=== PATIENT | female | born 1960 | race Caucasian/White ===

== ENCOUNTER → 2021-01-12 14:04 | Outpatient (BNVA) | payer BC, SELFPAY | PROVIDERS: Family Provider Internal Medicine; PCP Internal Medicine; Visit Provider Nurse Practitioner Family | DX: Z20.822 Contact with and (suspected) exposure to COVID-19 (principal) | CPT/HCPCS: 87635 ==

== ENCOUNTER 2022-05-12 10:10 | Emergency (ER) | payer BC, SELFPAY ==
[2022-05-12 10:10] VITALS: BP 134/81; PULSE 86; RESP 17; TEMP 36.6; O2SAT 97
--- NOTE | 2022-05-12 10:50 | PC.NURSE ---
Pt was here a short time, i had done her assessment, when lab went in to draw her blood she started yelling and cussing that she wanted pain meds, i went in her room she demanded pain meds i told her i had to go ask the doctor, she said she wanted to leave AMA, i told her to wait tell i talked to the doctor. I spoke to Dr. Rosenberg he said to give her hydrocodone, i went back in to tell her and she screamed you can keep your fucking hydrocodone, they are not strong enough i have them in the car pt demanded to leave and refused to sign AMA form. Dr rosenberg and charge nurse was notified
--- NOTE | 2022-05-12 11:12 | ED_ITS ---
HPI - General Adult General: Chief complaint: General Medical Stated complaint: Groin Pain/Post Surgery Time Seen by Provider: 05/12/22 10:17 History of Present Illness: Had signed up to see this patient and based on her triage notes ordered some initial labs and an ultrasound of the groin. Time I reviewed her chart she had tramadol down as a pain medication she is 1 week post cath. Staff had said she refused to allow any labs or testing before she had pain medicine I ordered hydrocodone she then told the staff she already had hydrocodone at home she wanted something stronger she became angry and left and did not see the patient in person she left without being seen. [facility] ED PFSH: Social History (Updated 01/12/21 @ 12:57 by Karen Abbott NP) Smoking and tobacco status: current every day smoker e-cigarettes E-Cigarette Details: vaporizer device Alcohol intake: current Alcohol intake frequency: holidays/special occasions only Course Vital Signs: Vital signs: Vital Signs Temperature 97.9 F 05/12/22 10:10 Pulse Rate 86 05/12/22 10:10 Respiratory Rate 17 05/12/22 10:10 Blood Pressure 134/81 05/12/22 10:10 Pulse Oximetry 97 05/12/22 10:10 Oxygen Delivery Me thod 05/12/22 10:10 MDM - General Adult Medical Decision Making Left without being seen because she did not receive what she felt was appropriate pain medications. Discharge Plan Discharge Patient Disposition: Left Against Medical Advice Clinical Impression: Right groin pain Condition: Stable Prescriptions: No Action Humira 40 mg/0.8 mL syringe kit 40 mg SUBCUT Q14D levothyroxine [Synthroid] 75 mcg tablet 75 mcg PO DAILY hydroxyzine HCl 25 mg tablet 25 mg PO BID PRN muscle relaxer PO .hs tramadol 50 mg tablet 50 mg PO BID PRN Referrals: Sneha Varghese MD [Primary Care Provider] - Coding Level of Care Code ED [place] Coiling Machine Setter for Rodolfo Greenwood
== END 2022-05-12 10:50 | disposition left against medical advice (07) ==
PROVIDERS: Emergency Provider Family Medicine; PCP Internal Medicine
DX: R10.31 Right lower quadrant pain (principal); F17.290 Nicotine dependence, other tobacco product, uncomplicated
CPT/HCPCS: 99281

== ENCOUNTER 2022-10-05 11:38 | Outpatient (RCR) | payer BC, SELFPAY | END 2022-10-18 23:59 | disposition home or self-care (01) | LOC: SPT 11:38 | PROVIDERS: Visit Provider Neurological Surgery | DX: M54.9 Dorsalgia, unspecified (principal) | CPT/HCPCS: 97161 ==

== ENCOUNTER 2024-08-09 17:44 | Emergency (ER) | payer BC, SELFPAY ==
[2024-08-09] VITALS (13 sets, daily range): BP systolic 111–166; BP diastolic 80–98; PULSE 79–99; RESP 16–18; TEMP 36.9; O2SAT 92–98; BMI 22.2
[2024-08-09 18:14] LABS: Basophils # 0.1 10^3/uL (0.0-0.1); Basophils % 0.6 %; Eosinophils # 0.3 10^3/uL (0.0-0.8); Eosinophils % 2.8 %; Hematocrit 35.6 % (36-47); Lymphocytes # 3.1 10^3/uL (0.8-4.8); Lymphocytes % 28.1 %; Mean Corpuscular HGB Conc 32.6 g/dL (30-55); Mean Corpuscular Hemoglobin 26.4 pg (27-33); Mean Corpuscular Volume 81.1 fl (85-98); Mean Platelet Volume 10.1 fL (7.4-10.4); Monocytes # 0.9 10^3/uL (0.2-0.9); Monocytes % 8.7 %; Neutrophils # 6.43 10^3/uL (1.8-7.7); Neutrophils % 59.2 %; Nucleated Red Blood Cells % 0 %; Platelet Count 400 10^3/cmm (157-399); Red Blood Count 4.39 10^6/uL (3.85-5.65); Red Cell Distribution Width 14.2 % (12.1-15.1); White Blood Count 10.84 10^3/uL (3.29-11.43)
--- NOTE | 2024-08-09 18:14 | PC.NURSE ---
pt states she cannot go to the bathroom and is refusing straight cath. pt requesting something for pain.
[2024-08-09 18:20] LABS: INR 0.83 (0.8-1.2)
[2024-08-09 18:28] LABS: Alanine Aminotransferase 17 U/L (0-33); Albumin Level 4.4 g/dL (3.5-5.2); Alkaline Phosphatase 110 U/L (35-105); Aspartate Amino Transferase 22 U/L (0-32); Blood Urea Nitrogen 23 mg/dL (8-23); Calcium 9.6 mg/dL (8.5-10.5); Carbon Dioxide 24 mmol/L (22-29); Chloride 100 mmol/L (98-107); Creatinine Clr Calc Pharmacy 62.1082; Globulin 2.7 g/dL (1.3-4.6); Glomerular Filtration Rate 55.8 mL/min (90-130); Glucose 133 mg/dL (65-115); Lipase 67 U/L (13-60); Osmolality Calculated 292 mOsm/kg (285-295); Sodium 138 mmol/L (136-145); Total Bilirubin 0.2 mg/dL (0.15-1.2); Total Protein 7.1 g/dL (6.6-8.7)
--- NOTE | 2024-08-09 18:30 | CTR_ITS ---
PROCEDURE INFORMATION: Exam: CT Abdomen And Pelvis With Contrast Exam date and time: 08/09/2024 7:00 PM Age: 64 years old Clinical indication: Abdominal pain; Localized; Left lower quadrant (llq); Prior surgery; Surgery date: 6+ months; Surgery type: Spine x2; Additional info: Left lower quadrant abdominal pain, TECHNIQUE: Imaging protocol: Computed tomography of the abdomen and pelvis with contrast. Radiation optimization: All CT scans at this facility use at least one of these dose optimization techniques: automated exposure control; mA and/or kV adjustment per patient size (includes targeted exams where dose is matched to clinical indication); or iterative reconstruction. Contrast material: OMNIPAQUE 350; Contrast volume: 100 ml; Contrast route: INTRAVENOUS (IV); COMPARISON: CR XR hip BI 3-4V wo/w pel [id number] 08/13/2017 11:35 AM RADIATION DOSE METRICS: Total DLP (mGy-cm): 674.35 FINDINGS: Lungs: Dependent atelectasis. Solid left lower lobe nodule measuring 7 mm. Heart: Aortic valve calcifications. Coronary arteries: Coronary artery calcifications. Liver: Normal. No mass. Gallbladder and biliary ducts: Common bile duct is grossly unremarkable. Pancreas: Pancreatic duct measures 4 mm. No discrete lesion of the pancreatic head. Spleen: Splenic calcifications Adrenal glands: Mild adrenal gland thickening bilaterally. Kidneys and ureters: Subcentimeter hypodense lesions likely representing small cysts. Stomach and bowel: Thickening of the duodenal bowel wall up to 1.0 cm with focal interspersed fat. Appendix: Appendix is not well visualized. Intraperitoneal space: Scant free pelvic fluid left of the bladder. Vasculature: Ectatic tortuous aorta with noncalcified and calcified plaque with ostial calcification of the major branches. Lymph nodes: No enlarged lymph nodes. Urinary bladder: Unremarkable as visualized. Small amount of free pelvic fluid left of the bladder. Reproductive: Diminutive uterus. Bones/joints: Posterior spinal fixation and anterior spinal fixation with disc spacer at L4-L5. Grade 1 anterolisthesis of L4 on L5.. No acute fracture. Soft tissues: There is a left-sided rectal sheath hematoma measuring 10.4 x 4.7 x 13.2 cm with active inferior contrast extravasation consistent with hemorrhage. CT/CT abdomen pelvis w con* [id number] IMPRESSION: 1. Left-sided rectal sheath hematoma measuring 10.4 x 4.7 x 13.2 cm with active hemorrhage inferiorly. 2. Prominent pancreatic duct at 4 mm. No discrete lesion of the pancreatic head. Recommend MRI pancreas with and without contrast for further evaluation. Solid left lower lobe nodule measuring 7 mm. For patients at low risk (minimal or absent history of smoking and of other known risk factors), recommend CT Chest at 6-12 months, then consider CT Chest at 18-24 months. For patients at high risk (history of smoking or of other known risk factors), recommend CT Chest at 6-12 months, then CT Chest at 18-24 months. (Reference: Flako) THIS REPORT CONTAINS FINDINGS THAT MAY BE CRITICAL TO PATIENT CARE. The findings were verbally communicated via telephone conference with Yossi Esparza at 7:42 PM INDUSTRIAL PIPEFITTER JOURNEYMAN on 08/09/2024. The findings were acknowledged and understood.
--- NOTE | 2024-08-09 18:33 | W.ED.ABDPA2 ---
HPI - Abdominal Pain General: Chief Complaint: Abdominal Pain Stated Complaint: Abd Pain, Time Seen by Provider: 08/09/24 18:05 History of Present Illness: Patient presents to the ER with complaints of left lower quadrant abdominal pain to 10 out of 10 she says been going on for 4 days. It started when she started coughing. Patient is COVID-positive she is on approximately day 9. She said at first it only hurt when she coughs but now the pain is there all the time. Patient is had lumbar fusion from the anterior approach as well as a left iliac stent placed. Patient is not currently on any blood thinners. Patient does have some ecchymosis on the inferior part of her abdominal scar from the prior surgery. Related Data Home Medications ?Medication ?Instructions ?Recorded ?Confirmed adalimumab 40 mg/0.8 mL 40 mg SUBCUT Q14D 01/12/21 01/12/21 subcutaneous syringe kit (Humira) hydroxyzine HCl 25 mg tablet 25 mg PO BID PRN 01/12/21 01/12/21 levothyroxine 75 mcg tablet 75 mcg PO DAILY 01/12/21 01/12/21 (Synthroid) muscle relaxer PO .hs 01/12/21 tramadol 50 mg tablet 50 mg PO BID PRN 01/12/21 01/12/21 Allergies Allergy/AdvReac Type Severity Reaction Status Date / Time gluten Allergy Severe celiac Verified 01/12/21 15:38 egg Allergy Unknown Unknown Verified 01/12/21 15:38 enalapril Allergy Unknown Unknown Verified 01/12/21 15:38 Iodinated Contrast Media Allergy Unknown Unknown Verified 08/09/24 19:07 latex Allergy Unknown unknown Verified 01/12/21 15:38 levofloxacin (From Levaquin) Allergy Unknown unknown Verified 01/12/21 15:38 metoprolol Allergy Unknown unknown Verified 01/12/21 15:38 Review of Systems General: Reports: 10 or more systems reviewed and unremarkable except in HPI and below PFSH ED PFSH: Social History Smoking and tobacco/nicotine status: current every day tobacco/nicotine user e-cigarettes E-Cigarette Details: vaporizer device Alcohol intake: current Alcohol intake frequency: holidays/special occasions only Substance/Drug Use: never Physical Exam Const: COMMON NORMALS: no acute distress, average body habitus, patient oriented x3, no limitations, healthy appearing, alert and well nourished HENMT: COMMON NORMALS: normocephalic, atraumatic, hearing grossly normal bilaterally, external ears normal, Normal external nose present, moist oral mucous membranes and oropharynx normal HEAD & SCALP: normocephalic and atraumatic NOSE: Normal external nose present EXTERNAL EAR: Yes external ears normal Neck/C-Spine: COMMON NORMALS: no JVD Chest: COMMONS NORMALS: normal inspection of the chest and normal palpation of entire chest wall Resp: COMMON NORMALS: normal respiratory effort, No retractions, No use of accessory muscles and clear to auscultation bilaterally AUSCULTATION: clear to auscultation bilaterally Cardio: COMMON NORMALS: no JVD, regular rate, regular rhythm, S1 normal heart sound present, S2 normal heart sound present, No gallops present (Cardio), No clicks present (Cardio), No murmurs present (Cardio) and No rub (Cardio) RATE: regular rate RHYTHM: regular rhythm HEART SOUNDS: S1 normal heart sound present and S2 normal heart sound present GI: COMMON NORMALS: Normal to inspection, nondistended, normoactive bowel sounds present, Soft to palpation, No hepatosplenomegaly present and no masses; negative for non-tender (mld tenderness to palpation left lower quadrant, mild ecchymosis on inf) PALPATION: Yes Soft to palpation and Yes No hepatosplenomegaly present Neuro: COMMON NORMALS: patient oriented x3 SENSORIUM/ORIENTATION: Yes alert Course Vital Signs: Vital signs: Vital Signs Temperature 98.4 F 08/09/24 17:45 Pulse Rate 87 08/09/24 22:30 Respiratory Rate 18 08/09/24 21:40 Blood Pressure 135/89 08/09/24 22:30 Pulse Oximetry 96 08/09/24 22:30 Oxygen Delivery Me thod Nasal Cannula 08/09/24 22:30 Oxygen Flow Rate 1 08/09/24 22:30 MDM - Abdominal Pain Medical Decision Making Notified by V read about patient's CT scan, actively bleeding rectal sheath hematoma, contacted who said there is nothing from a surgical standpoint that can be done this is an interventional radiology issue. [facility] they are at least 48 hours out from accepting patients. Contacted [facility] IR will look at the images and call us back, Loren call us back and said they have no beds, we called [facility], they have IR during normal business hours they will have the hospitalist look at it and give us a call back. They declined. Contacted [facility] transfer will talk to the hospitalist and call us back. The hospitalist feels she needs a stepdown/ICU bed they do not have one at this time. [facility] was called. They are at a whole hospital divert unless it is a time sensitive diagnosis. They will decline also. [facility] transfer line to the phone call, IR is not accepting service, they will call the hospitalist and he will call us back however there have an extensive wait list already. [facility] transfer line took note will call the hospitalist and call us back however they are on a wait list currently. Called [facility], I do have IR but they do not have colorectal surgery, transfer line redness by the ER doc who said they should decline excepting the patient in transfer. [facility] called back and have a bed open up, I discussed the patient with the change management coordinator as well as an ICU nurse who is going to run it by the hospitalist and see where they can place her at. They will call us back. [facility] call back accepting physician is their petroleum production engineer Medical Records I reviewed the patient's medical records. Lab Data I reviewed the patient's lab results. 08/09/24 17:30 08/09/24 17:30 Labs/Radiology: Radiology Impressions Abdomen/Pelvis CT 08/09/24 18:30 IMPRESSION: 1. Left-sided rectal sheath hematoma measuring 10.4 x 4.7 x 13.2 cm with active hemorrhage inferiorly. 2. Prominent pancreatic duct at 4 mm. No discrete lesion of the pancreatic head. Recommend MRI pancreas with and without contrast for further evaluation. Solid left lower lobe nodule measuring 7 mm. For patients at low risk (minimal or absent history of smoking and of other known risk factors), recommend CT Chest at 6-12 months, then consider CT Chest at 18-24 months. For patients at high risk (history of smoking or of other known risk factors), recommend CT Chest at 6-12 months, then CT Chest at 18-24 months. (Reference: Flako) THIS REPORT CONTAINS FINDINGS THAT MAY BE CRITICAL TO PATIENT CARE. The findings were verbally communicated via telephone conference with Yossi Esparza at 7:42 PM REFUSE AND RECYCLING WORKER on 08/09/2024. The findings were acknowledged and understood. Laboratory Results WBC 10.84 10^3/uL (3.29-11.43) 08/09/24 17:30 RBC 4.39 10^6/uL (3.85-5.65) 08/09/24 17: Hgb 11.60 g/dL (11.27-16.99) 08/09/24 17: Hct 35.6 % (36-47) L 08/09/24 17:30 MCV 81.1 fl (85-98) L 08/09/24 17: MCH 26.4 pg (27-33) L 08/09/24 17: MCHC 32.6 g/dL (30-55) 08/09/24 17: RDW 14.2 % (12.1-15.1) 08/09/24 17: Plt Count 400 10^3/cmm (157-399) H 08/09/24 17: MPV 10.1 fL (7.4-10.4) 08/09/24 17: Neut % (Auto) 59.2 % 08/09/24 17:30 Lymph % (Auto) 28.1 % 08/09/24 17:30 [place] % (Auto) 8.7 % 08/09/24 17:30 Eos % (Auto) 2.8 % 08/09/24 17: Baso % (Auto) 0.6 % 08/09/24 17: Neut # (Auto) 6.43 10^3/uL (1.8-7.7) 08/09/24 17:30 Lymph # (Auto) 3.1 10^3/uL (0.8-4.8) 08/09/24 17:30 [place] # (Auto) 0.9 10^3/uL (0.2-0.9) 08/09/24 17:30 Eos # (Auto) 0.3 10^3/uL (0.0-0.8) 08/09/24 17:30 Baso # (Auto) 0.1 10^3/uL (0.0-0.1) 08/09/24 17:30 Nucleated RBC % (auto) 0 % 08/09/24 17:30 Nucleated RBCs # 0.0 /100WBC 08/09/24 17:30 PT 12.00 SECONDS (12.1-14.9) L 08/09/24 17:30 INR 0.83 (0.8-1.2) 08/09/24 17:30 Sodium 138 mmol/L (136-145) 08/09/24 17:30 Potassium 4.0 mmol/L (3.5-5.1) 08/09/24 17:30 Chloride 100 mmol/L (98-107) 08/09/24 17:30 Carbon Dioxide 24 mmol/L (22-29) 08/09/24 17:30 Anion Gap 18.0 (5-19) 08/09/24 17:30 BUN 23 mg/dL (8-23) 08/09/24 17:30 Creatinine 1.0 mg/dL (0.5-0.9) H 08/09/24 17:30 GFR Calculation 55.8 mL/min (90-130) L 08/09/24 17:30 Glucose 133 mg/dL (65-115) H 08/09/24 17:30 Calculated Osmolality 292 mOsm/kg (285-295) 08/09/24 17:30 Calcium 9.6 mg/dL (8.5-10.5) 08/09/24 17:30 Total Bilirubin 0.2 mg/dL (0.15-1.2) 08/09/24 17:30 AST 22 U/L (0-32) 08/09/24 17:30 ALT 17 U/L (0-33) 08/09/24 17:30 Alkaline Phosphatase 110 U/L (35-105) H 08/09/24 17:30 Total Protein 7.1 g/dL (6.6-8.7) 08/09/24 17:30 Albumin 4.4 g/dL (3.5-5.2) 08/09/24 17:30 Globulin 2.7 g/dL (1.3-4.6) 08/09/24 17:30 Lipase 67 U/L (13-60) H 08/09/24 17:30 All radiology interpretation(s) finalized by discharge Discharge Plan Discharge Patient Disposition: Xfer Short-Term Hosp Clinical Impression: Rectus sheath hematoma Qualifiers: Encounter type: initial encounter Qualified Code(s): S30.1XXA - Contusion of abdominal wall, initial encounter Condition: Stable Print Language: Yemeni Coding Level of Care Code ED Patent Attorney for Rodolfo Greenwood
[2024-08-09] MEDS: methylPREDNISolone sod succ 40 mg/mL INJ IVP (18:41)
[2024-08-09] MEDS: ketorolac 30 mg/mL INJ IVP (18:43)
[2024-08-09] MEDS: metoclopramide 5 mg/mL SDV 2 mL 10 MG IVP (18:43)
[2024-08-09] MEDS: iohexol 350 mg/mL 500 mL Btl (per mL) IV (19:06)
--- NOTE | 2024-08-09 19:06 | PC.NURSE ---
pt states that she cannot have benadryl for her premed ct scan, this nurse asked if she could remember why, pt very upset and agitated states I don't know, I just know for my last CT scan they hung a bag of something [address] scan but they said I can't have Benadryl This nurse reported this to Dr. Esparza, hold Benadryl but give other scheduled medications pre for ct. Pt also continues to states her pain is worse than a 10 to left abd and that she is hurting worse than when she first come in, this was also relayed to Dr. Esparza, pain meds ordered.
[2024-08-09] MEDS: morphine 4 mg/mL SDV 1 mL IVP ×3 (20:04→23:03)
--- NOTE | 2024-08-09 22:49 | PC.NURSE ---
pt report called to [facility] for pt transfer out air evac, report called to Ophelia Buchanan RN at [phone].
[2024-08-09 23:17] LABS: Basophils % 0.3 %; Hematocrit 34.8 % (36-47); Lymphocytes % 9.2 %; Mean Corpuscular HGB Conc 32.2 g/dL (30-55); Mean Corpuscular Hemoglobin 26.5 pg (27-33); Mean Corpuscular Volume 82.5 fl (85-98); Mean Platelet Volume 9.8 fL (7.4-10.4); Monocytes # 0.1 10^3/uL (0.2-0.9); Monocytes % 1.1 %; Neutrophils # 9.39 10^3/uL (1.8-7.7); Neutrophils % 88.7 %; Nucleated Red Blood Cells % 0 %; Platelet Count 373 10^3/cmm (157-399); Red Blood Count 4.22 10^6/uL (3.85-5.65); Red Cell Distribution Width 14.4 % (12.1-15.1); White Blood Count 10.58 10^3/uL (3.29-11.43)
== END 2024-08-09 23:27 | disposition short-term general hospital (02) ==
PROVIDERS: Emergency Provider Emergency Medicine
DX: S30.1XXA Contusion of abdominal wall, initial encounter (principal); F17.290 Nicotine dependence, other tobacco product, uncomplicated; X58.XXXA Exposure to other specified factors, initial encounter
CPT/HCPCS: 74177; 80053; 83690; 85025; 85610; 96374; 96375; 96376; 99285; J1885; J2270; J2765; J2919

== ENCOUNTER 2024-11-19 19:24 | Emergency (ER) | payer BC, SELFPAY ==
[2024-11-19 19:47] VITALS: BP 118/75; PULSE 86; RESP 16; TEMP 36.8; O2SAT 97
--- NOTE | 2024-11-19 19:57 | XRR_ITS ---
PROCEDURE INFORMATION: Exam: XR Left Hand Exam date and time: 11/19/2024 8:44 PM Age: 64 years old Clinical indication: Injury or trauma; Left; Multiple puncture wounds to palm of hand and lateral aspect of base of thumb from dog bite. TECHNIQUE: Imaging protocol: Radiologic exam of the left hand. Views: 3 or more views. COMPARISON: No relevant prior studies available. FINDINGS: Bones/joints: Degenerative changes about the 1st carpometacarpal joint. No distinct large obvious fracture deformity. Small fracture deformity can not be excluded. Soft tissues: Poorly visualized soft tissue defects about the base of the thumb, consistent with puncture wounds. XR/XR hand LT min 3V* [id number] IMPRESSION: 1. Degenerative changes about the 1st carpometacarpal joint. No distinct large obvious fracture deformity. Small fracture deformity can not be excluded. 2. Poorly visualized soft tissue defects about the base of the thumb, consistent with puncture wounds.
--- NOTE | 2024-11-19 21:14 | PC.NURSE ---
PT in room pacing, this nurse had a basin and was going to have pt soak in water with betadine, pt states no, pt states I don't know why I'm here I can just take care of this at home, I'm going to just walk out of here. This nurse stated that the wounds need to be cleaned, pt states I know but it hurts, I hate hospitals I can just take care of this at home I don't know why I came. Pt states that she takes blood thinners and there was so much blood. This nurse asked if pt would at least wash her wounds in the sink, pt rinsed off wounds in sink, this nurse asked pt to cover wounds with gauze, pt voiced not wanting to because It will stick. Gauze laid over wounds. PT continues to be up and pacing room, anxiety noted.
[2024-11-19] MEDS: lidocaine 1% 10 ML INJ INTRAVESIC (21:56)
[2024-11-19] MEDS: lidocaine 1% 10 ML INJ INTRADERMA (21:56)
--- NOTE | 2024-11-19 23:00 | ED_ITS ---
HPI - Animal Bite General: Chief Complaint: Animal Bite Stated Complaint: Left Hand Dog Bite Time Seen by Provider: 11/19/24 20:02 History of Present Illness: 64 yo female patient presents to the ER with c/o dog bite to left hand approx 30 minutes ago. Pt states she is on blood thinners. Pt states her dogs are UTD on vaccines and pt states her tetanus is UTD. PT presents with bleeding control. Related Data Home Medications ?Medication ?Instructions ?Recorded ?Confirmed adalimumab 40 mg/0.8 mL 40 mg SUBCUT Q14D 01/12/21 0 01/12/21 subcutaneous syringe kit (Humira) hydroxyzine HCl 25 mg tablet 25 mg PO BID PRN 01/12/21 01/12/21 levothyroxine 75 mcg tablet 75 mcg PO DAILY 01/12/21 0 01/12/21 (Synthroid) muscle relaxer PO .hs 01/12/21 tramadol 50 mg tablet 50 mg PO BID PRN 01/12/21 Previous Rx's ?Medication ?Instructions ?Recorded amoxicillin 875 mg-potassium 1 tab PO BID 10 days #20 tabs 11/19/24 clavulanate 125 mg tablet hydrocodone 5 mg-acetaminophen 325 1 tab PO Q8H PRN pa in #7 tabs 11/19/24 mg tablet Allergies Allergy/AdvReac Type Severity Reaction Status Date / Time gluten Allergy Severe celiac Verified 11/19/24 19:53 egg Allergy Unknown Unknown Verified 11/19/24 19:53 enalapril Allergy Unknown Unknown Verified 11/19/24 19:53 Iodinated Contrast Media Allergy Unknown Unknown Verified 11/19/24 19:53 latex Allergy Unknown unknown Verified 11/19/24 19:53 levofloxacin (From Levaquin) Allergy Unknown unknown Verified 11/19/24 19:53 metoprolol Allergy Unknown unknown Verified 11/19/24 19:53 Review of Systems General: Reports: 10 or more systems reviewed and unremarkable except in HPI and below PFSH ED PFSH: Social History Smoking and tobacco/nicotine status: current every day tobacco/nicotine user e- cigarettes E-Cigarette Details: vaporizer device Alcohol intake: current Alcohol intake frequency: holidays/special occasions only Substance/Drug Use: never Physical Exam Const: COMMON NORMALS: no acute distress and average body habitus Resp: COMMON NORMALS: normal respiratory effort Cardio: COMMON NORMALS: regular rate RATE: regular rate Extremity: COMMON NORMALS: capillary refill normal LEFT UPPER EXTREMITY: Yes hand & digits Left hand and digits: Yes inspection (4 cm laceration to base of left thumb 2 puncture wounds to left thumb), Yes neurovascular exam (NVI distally) and Yes tendon exam (intact) Procedures Laceration Laceration 1: Site: hand (left thumb left wrist) Size (cm): 4 Description: linear (4 cm linear laceration to left thumb) and flap (3 cm jagged laceration with flap) Local Anesthetic: lidocaine 1% Amount of anesthesia used (mL): 10 Pre-repair: wound explored and irrigated extensively Skin layer closed with: nylon Number of sutures: 14 Course Vital Signs: Vital signs: Vital Signs Temperature 98.2 F 11/19/24 19:47 Pulse Rate 86 11/19/24 19:47 Respiratory Rate 16 11/19/24 19:47 Blood Pressure 118/75 11/19/24 19:47 Pulse Oximetry 97 11/19/24 19:47 Oxygen Delivery Me thod Room Air 11/19/24 19:47 MDM - Animal Bite Medical Decision Making 64 yo female patient presents to the ER with c/o dog bite to left hand approx 30 minutes ago. Pt states she is on blood thinners. Pt states her dogs are UTD on vaccines and pt states her tetanus is UTD. PT presents with bleeding control. Please see procedure note for laceration repair. Pt is NVI distally pre and post procedure. Pt has full flexion and extension to thumb with no evidence of tendon involvement. Given extent of injury I will refer patient to hand specialist for follow up. prior to laceration repair pand was soaked in betadine and normal saline and then irrigated. xray is negative for any acute findings. Will place patient on augmentin and give short course of pain meds. return rpecautions, home care and follow up discussed with patient. Lab Data Radiology Impressions Hand X-Ray 11/19/24 19:57 IMPRESSION: 1. Degenerative changes about the 1st carpometacarpal joint. No distinct large obvious fracture deformity. Small fracture deformity can not be excluded. 2. Poorly visualized soft tissue defects about the base of the thumb, consistent with puncture wounds. All radiology interpretation(s) finalized by discharge Discharge Plan Discharge Patient Disposition: Home Clinical Impression: Dog bite Condition: Stable Prescriptions: New hydrocodone-acetaminophen 5-325 mg tablet 1 tab PO Q8H PRN (Reason: pain) Qty: 7 0RF amoxicillin-pot clavulanate 875-125 mg tablet 1 tab PO BID 10 Days Qty: 20 0RF No Action Humira 40 mg/0.8 mL syringe kit 40 mg SUBCUT Q14D levothyroxine [Synthroid] 75 mcg tablet 75 mcg PO DAILY hydroxyzine HCl 25 mg tablet 25 mg PO BID PRN muscle relaxer PO .hs tramadol 50 mg tablet 50 mg PO BID PRN Discharge Orders: Discharge ED (Routine); Ordered 11/19/24 Ordered By: Carmelita Pradhan Discharge Diet: Advance as tolerated Discharge Activity: Increase activity as tolerated Patient Instructions: Opioid Safety, Pain Management, Animal Bite (ED), Laceration (ED) Activity Restrictions/Additional Instructions: Vending Machine Assembler will call you will follow up information Return to the ER if You have heavy bleeding or bleeding that does not stop after 10 minutes of holding firm, direct pressure over the wound. Your wound reopens. You have tingling, weakness, or numbness near the wound. You have trouble moving the area near the wound Take meds as prescribed Return to ER in 7-8 days for suture removals Clean and change dressing every 24 hours as discussed Print Language: Slovenian Coding Level of Care Code ED Surgical Assistant for Rodolfo Greenwood
[2024-11-19] MEDS: amoxicillin-clav 875-125 mg Tablet 1 TAB PO (23:10)
[2024-11-19] MEDS: oxyCODONE-APAP 5-325 mg Tablet 2 TAB PO (23:10)
--- NOTE | 2024-11-21 16:05 | DCPLANNER ---
[facility]
== END 2024-11-19 23:20 | disposition home or self-care (01) ==
PROVIDERS: Emergency Provider Registered Nurse
DX: S61.452A Open bite of left hand, initial encounter (principal); W54.0XXA Bitten by dog, initial encounter; F17.290 Nicotine dependence, other tobacco product, uncomplicated
CPT/HCPCS: 12002; 73130; 99283; J9999